=== PATIENT | female | born 1990 | race Caucasian/White ===

== ENCOUNTER 2022-09-13 00:03 | Inpatient (IN) | payer OTHER ==
[~2022-09-13 00:03] MED LIST: Lidocaine 1% 10 ML MDV ONE
[2022-09-13] MEDS ORDERED: Nalbuphine 10 MG/0.5 ML Syringe IVPUSH PRN (03:00)
[2022-09-13] MEDS ORDERED: Oxytocin/Lactated Ringers 10 UNIT/1,000 ML BAG IV SCH ×2 (03:00→03:45)
[2022-09-13] MEDS ORDERED: Acetaminophen 325 MG Tab PO PRN ×2 (03:00→17:29)
[2022-09-13] MEDS ORDERED: Calcium Carbonate 500 MG Tab.Chew PO PRN (03:30)
[2022-09-13] MEDS ORDERED: Lidocaine 1% 50 ML MDV INJECT ONE (03:30)
[2022-09-13] MEDS ORDERED: Ondansetron 4 MG/2 ML SDV IVPUSH PRN (03:30)
[2022-09-13] MEDS: Lactated Ringers 1,000 ML IV SCH ×2 (03:44→11:49)
[2022-09-13] MEDS ORDERED: Diphtheria,Pertussis(Acell),Tetanus Vaccine 0.5 ML Syringe IM ONE (04:47)
[2022-09-13] MEDS ORDERED: Bupivacaine/fentaNYL/NS 100 ML Bag EPIDUR PRN (09:33)
[2022-09-13] MEDS ORDERED: fentaNYL 100 MCG/2 ML SDV EPIDUR PRN (09:33)
[2022-09-13] MEDS ORDERED: diphenhydrAMINE 50 MG/ML SDV IVPUSH PRN (09:33)
[2022-09-13] MEDS ORDERED: ePHEDrine 50 MG/ML SDV IVPUSH PRN (09:33)
[2022-09-13] MEDS: Sodium Chloride 0.9% 10 ML Syringe FLUSH SCH ×2 (14:54→14:55)
[2022-09-13] MEDS ORDERED: Benzocaine/Menthol 20%-0.5% Spray 78 GM Cannister TOP PRN (17:29)
[2022-09-13] MEDS ORDERED: Docusate Sodium 100 MG Cap PO PRN (17:29)
[2022-09-13] MEDS ORDERED: Witch Hazel Medicated Pads 40/Jar TOP PRN (17:29)
[2022-09-13] MEDS ORDERED: Ibuprofen 600 MG Tab PO PRN (17:29)
[2022-09-14] MEDS ORDERED: Prenatal Multivitamin with Calcium/Folic Acid/Iron Tab PO SCH (09:00)
== END 2022-09-14 13:51 | disposition home or self-care (01) | DRG 807 ==
LOC: JD.OB 02:48 → OBSVTOIN 14:24 → JD.OB 14:24
PROVIDERS: ADMIT Obstetrics & Gynecology; ATTEND Obstetrics & Gynecology
PROC: 10E0XZZ Delivery of Products of Conception, External Approach (ICD-10-PCS; principal; 2022-09-13)
PROC: 10907ZC Drainage of Amniotic Fluid, Therapeutic from Products of Conception, Via Natural or Artificial Opening (ICD-10-PCS; 2022-09-13)
PROC: 3E033VJ Introduction of Other Hormone into Peripheral Vein, Percutaneous Approach (ICD-10-PCS; 2022-09-13)
PROC: 3E0R3BZ Introduction of Anesthetic Agent into Spinal Canal, Percutaneous Approach (ICD-10-PCS; 2022-09-13)
PROC: 00HU33Z Insertion of Infusion Device into Spinal Canal, Percutaneous Approach (ICD-10-PCS; 2022-09-13)
DX: O99.02 Anemia complicating childbirth (principal); Z37.0 Single live birth; O99.52 Diseases of the respiratory system complicating childbirth; J45.909 Unspecified asthma, uncomplicated; D64.9 Anemia, unspecified; Z3A.39 39 weeks gestation of pregnancy
CPT/HCPCS: 36415; 51702; 59025; 59409; 85025; 86592; J2590; J3010; J7120